=== PATIENT | female | born 1970 | race Caucasian/White ===

== ENCOUNTER → 2024-06-08 | Outpatient (CLI) | payer BC ==
[~2024-06-08] MED LIST: ALBU90OI INH; CELE200 PO; CYCL10 PO; ESCITALOPRAM OX10 MG PO; ESTR.05PBW TOP; GABA100 PO; IBUP800 PO; LIDO5TP TOP; METCAR500 PO; MONT10T PO; NAPR500 PO; NASACORT10.8 ML NS; OMEP40CA12 PO; OXYACE5T PO; ROXICODONE5 MG PO; TOPI50; TOPI50 PO; TRAM50 PO
== END | disposition home or self-care (01) ==
LOC: LAB SHORT 10:00 → LAB 10:00
DX: R30.0 Dysuria (principal)
CPT/HCPCS: 87086

== ENCOUNTER 2025-06-12 08:17 | Day surgery (SDC) | payer BC ==
[~2025-06-12] VITALS: Ht 160 cm; Wt 69.3 kg
[2025-06-12] MEDS ORDERED: CeFAZolin Sodium 2,000 MG VIAL ONE (08:27)
[2025-06-12] MEDS ORDERED: FentaNYL Citrate 50 MCG/ML 2 ML Injection ONE (08:49)
[2025-06-12] MEDS ORDERED: Midazolam HCl 1MG / ML 2ML Vial ONE (08:50)
[2025-06-12] MEDS ORDERED: SAXENDA SQ (09:01)
[2025-06-12] MEDS ORDERED: LOSA50 PO (09:02)
[2025-06-12] MEDS ORDERED: OMEP20ER (09:02)
[2025-06-12] MEDS ORDERED: CELE100 PO (09:04)
[2025-06-12] MEDS ORDERED: GABA100 PO (09:04)
[2025-06-12] MEDS ORDERED: Bupivacaine 0.5% W/EPI 1:200000 SDV 30 ML Vial ONE (09:37)
[2025-06-12] MEDS ORDERED: Ketorolac Tromethamine 30mg Vial ONE ×2 (09:52→10:49)
[2025-06-12] MEDS ORDERED: Ondansetron HCl 2 MG / ML 2ML Vial ONE (09:52)
[2025-06-12] MEDS ORDERED: ePHEDrine Sulfate 50 MG/ML 1ML Injection ONE ×2 (10:14→12:11)
[2025-06-12] MEDS ORDERED: HYDROmorphone HCl/Pf 1MG SYR ONE (11:05)
[2025-06-12 12:13] VITALS: BP 94/62
[2025-06-12] MEDS ORDERED: Phenylephrine HCl 100 MCG/ML-NS 10MLSYR (1MG/10ML) ONE (12:49)
--- NOTE | 2025-06-12 13:09 | NUR ---
06/12/25 1309 Catarina Bowen 1235 LEFT HIP PAIN "A LOT BETTER." TOLERABLE AT A "3". PT. DRINKING STARRY & EATING REINIER CRACKERS. AT HER SIDE.
== END 2025-06-12 13:15 | disposition home or self-care (01) ==
LOC: ORSCSDS 08:17
PROVIDERS: Orthopaedic Surgery
PROC: 0SN Lower Joints, Release (ICD-10-PCS; principal; 2025-06-12 09:45)
DX: M87.052 Idiopathic aseptic necrosis of left femur (principal); I10 Essential (primary) hypertension; J45.909 Unspecified asthma, uncomplicated; Z79.899 Other long term (current) drug therapy
CPT/HCPCS: C1769; J0690; J1171; J1885; J2250; J2371; J2405; J2704; J3010; J7120